=== PATIENT | male | born 1980 | race Caucasian/White ===

== ENCOUNTER 2023-12-25 21:45 | Emergency (ER) | payer MEDICAID ==
[~2023-12-25] VITALS: Ht 180.3 cm; Wt 110.0 kg
[2023-12-25 21:51] VITALS: BP 98/55; PULSE 100; TEMP 98.4; O2SAT 100
[2023-12-26 02:00] VITALS: RESP 19
== END 2023-12-26 02:46 | disposition home or self-care (01) ==
LOC: ER 21:45
DX: K02.9 Dental caries, unspecified (principal); I10 Essential (primary) hypertension; F20.9 Schizophrenia, unspecified; F32.9 Major depressive disorder, single episode, unspecified; Z68.33 Body mass index [BMI] 33.0-33.9, adult
CPT/HCPCS: 99281

== ENCOUNTER 2024-08-05 07:52 | Emergency (ER) | payer MEDICAID, OTHER ==
[~2024-08-05] VITALS: Ht 180.3 cm; Wt 118.0 kg
[2024-08-05 08:09] VITALS: O2SAT 98
[2024-08-05 11:51] VITALS: BP 153/102; PULSE 108; RESP 18; TEMP 36.9; O2SAT 95
[2024-08-05 13:15] LABS: INFLUENZA TYPE A Presumptive Negative (Pres. Neg.)
[2024-08-05 13:16] LABS: INFLUENZA TYPE B Presumptive Negative (Pres. Neg.)
== END 2024-08-05 11:53 | disposition home or self-care (01) ==
LOC: ER 07:52
DX: J06.9 Acute upper respiratory infection, unspecified (principal); B97.89 Other viral agents as the cause of diseases classified elsewhere; R05.9 Cough, unspecified; E11.9 Type 2 diabetes mellitus without complications; F20.9 Schizophrenia, unspecified; I10 Essential (primary) hypertension; Z20.822 Contact with and (suspected) exposure to COVID-19
CPT/HCPCS: 71045; 87426; 87804; 99284; A4606